=== PATIENT | female | born 1965 | race Caucasian/White ===

== ENCOUNTER 2016-10-04 05:35 | Emergency (ER) | payer OTHER, BC ==
[~2016-10-04] VITALS: Ht 172.7 cm; Wt 97.5 kg
[~2016-10-04 05:35] MED LIST: ALDACTONE25 MG; BSP10T PO; BSP5T PO; CLCX100C; CYCL5TAB11 PO; CYMBALTA; DULO60CA6 PO; ESCT10T; FENO145T2; HYDR1TAB86 PO; MULT-608; OMEP10CA2 PO; OMG1KC; ONDAN4ODT PO; POTASSIUM; PRAV40TA; PRV20T; RABE20TA; SIMVASTIN; SRTR100T PO; TRAZ150T42 PO; VIT1CAPS9; ZINC15TA2
--- OUTSIDE RECORDS SUMMARY | 2016-10-04 05:42 | XMS REPORT ---
Author Author HERIBERTO TAVERAS [facility] eClinicalWorks Address Unknown Phone Unavailable Care Team Providers Care Prospect Manager Name Role Phone HERIBERTO TAVERAS CP Unavailable Allergies, Adverse Reactions, Alerts Substance Reaction Event Type Prozac anxiety Drug Allergy Crestor leg cramps Drug Allergy Chantix red tongue Drug Allergy Problems Problem Type Condition Code Onset Dates Condition Status Assessment Urinary tract infection N39.0 Active Assessment Urgency of urination R39.15 Active Problem Irritable bowel syndrome 564.1 Active Problem Other and unspecified bipolar disorders 296.89 Active Problem Other screening mammogram V76.12 Active Problem Unspecified viral infection, in conditions classified elsewhere and of unspecified site 079.99 Active Problem Migraine with aura, without mention of intractable migraine without mention of status migrainosus 346.00 Active Problem Rheumatic fever without mention of heart involvement 390 Active Problem Acute bronchitis 466.0 Active Problem Muscle weakness (generalized) 728.87 Active Problem Anxiety disorder, unspecified F41.9 Active Problem Abdominal pain, unspecified site 789.00 Active Problem Major depressive disorder, recurrent episode, severe, without mention of psychotic behavior 296.33 Active Problem Encounter for long-term (current) use of other medications V58.69 Active Problem Major depressive disorder, recurrent episode F33.9 Active Problem Screening for malignant neoplasm of the cervix V76.2 Active Problem Acute cystitis 595.0 Active Problem Urinary frequency 788.41 Active Problem Acute upper respiratory infections of unspecified site 465.9 Active Problem Nondependent tobacco use disorder 305.1 Active Problem Restless legs syndrome [RLS] 333.94 Active Problem Generalized anxiety disorder 300.02 Active Problem Spasm of muscle 728.85 Active Problem Other malaise and fatigue 780.79 Active Problem Post-traumatic headache, unspecified 339.20 Active Problem Attention deficit disorder of childhood without mention of hyperactivity 314.00 Active Problem Cramp of limb 729.82 Active Problem Loss of weight 783.21 Active Medications Medication Code System Code Instructions Start Date End Date Status Dosage BusPIRone HCl [facility] [address]-72 15 MG Orally Twice a day 1 tablet Lyrica [facility] [address]-44 75 MG Orally 1 tab in the AM and 2 tabs at bedtime 1 capsule Zolpidem Tartrate [facility] [address]-32 5 MG TAKE ONE TABLET BY MOUTH AT BEDTIME Multivitamin [facility] [address] Orally Once a day 1 tablet Cymbalta [facility] [address]-11 30 MG Orally Once a day January 20, 2015 3capsule Cipro [facility] [address]-00 500 MG Orally Twice a day Jun 12, 2015 Jun 22, 2015 1 tablet Procedures Procedure Coding System Code Date URINE CULTURE/COLONY COUNT CPT-4 07621 Jun 12, 2015 Office Visit, Est Pt., Level 3 CPT-4 28815 Jun 12, 2015 URINALYSIS, AUTO, W/O SCOPE CPT-4 07173 Jun 12, 2015 Vital Signs Date/Time: Jun 12, 2015 Temperature 98.3 F Weight 204 lbs Height 71 in BMI 28.45 Index Blood Pressure Diastolic 80 mmHg Blood Pressure Systolic 128 mmHg Cardiac Monitoring Heart Rate 70 bpm Results Name Result Date Reference Range Unit Abnormality Flag UA LONG DIP (IN HOUSE) CULTURE, URINE Summary Purpose eClinicalWorks Submission
[2016-10-04] MEDS ORDERED: SIMV20TA3 PO (05:49)
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
[2016-10-04] MEDS ORDERED: KETOROLAC 30 MG/ML VIAL IVP STA (07:36)
[2016-10-04] MEDS ORDERED: CYCL10TA9 PO (07:41)
[2016-10-04] MEDS ORDERED: IBUP-1780 PO (07:41)
[2016-10-04 08:10] VITALS: BP 138/65
== END 2016-10-04 08:10 | disposition home or self-care (01) ==
LOC: EDUNIT# 05:35 → ER 05:37
DX: S16.1XXA Strain of muscle, fascia and tendon at neck level, initial encounter (principal); S40.011A Contusion of right shoulder, initial encounter; S86.911A Strain of unspecified muscle(s) and tendon(s) at lower leg level, right leg, initial encounter; M47.812 Spondylosis without myelopathy or radiculopathy, cervical region; E04.1 Nontoxic single thyroid nodule; F17.210 Nicotine dependence, cigarettes, uncomplicated; V43.52XA Car driver injured in collision with other type car in traffic accident, initial encounter; Y92.410 Unspecified street and highway as the place of occurrence of the external cause; Y99.8 Other external cause status
CPT/HCPCS: 70450; 71010; 72125; 72128; 72131; 72170; 73000; 73590; 96374; 99283

== ENCOUNTER → 2016-11-08 | Outpatient (CLI) | payer BC ==
[~2016-11-08] VITALS: Ht 180.3 cm; Wt 98.9 kg
[~2016-11-08] MED LIST changes: +CYCL10TA9 PO; +IBUP-1780 PO; +REGADENOSON 0.4 MG/5 ML SYR (LEXISCAN) IV ONE; +SIMV20TA3 PO
[2016-11-08] MEDS: CATHETER FLUSH 10 ML SYR IV PRN ×2 (11:27→13:09)
[2016-11-08 13:07] VITALS: BP 115/64
--- NOTE | 2016-11-10 08:54 | ECHOCARDIOGRAPHY REPORT ---
PROCEDURE PHYSICIAN: ANAND ENG DATE OF PROCEDURE: 11/08/2016 TWO DIMENSIONAL ECHOCARDIOGRAM REPORT PRIMARY PHYSICIAN: Dr. Murray OTHER PHYSICIAN: REFERRING PHYSICIAN: ORDERING PHYSICIAN: Dr. Eng INDICATION FOR THE PROCEDURE: 1. Chest discomfort. 2. Abnormal electrocardiogram. MEASUREMENTS DERIVED VALUES LV DIAMETER (LAX) NORMALS NORMALS Diastolic 5.1 (3.6-5.2) Eject. Fract. (60%+/-6%) Systolic (2.3-3.9) Diastolic Vol. % Shortening (0.22-0.42) Systolic Vol. Aortic Root 3.3 IVS THICKNESS Diastolic 1.1 (0.6-1.1) LVPW THICKNESS Diastolic 1 (0.6-1.1) LA DIAMETER Systolic 3.8 (2.1-3.7) DESCRIPTION: Two-dimensional echocardiography shows normal global left ventricular systolic function with normal regional wall motion. Left ventricular ejection fraction is approximately 60 to 65%. Aortic, mitral and tricuspid valve leaflets show good leaflet excursion. There is no significant pericardial effusion. Aortic valve appears to be trileaflet. Doppler imaging shows mild to moderate aortic regurgitation. There is trivial to mild mitral and tricuspid regurgitation. There is no evidence of any significant intracardiac shunt. Inferior vena cava is mildly dilated but does exhibit inspiratory collapse. CONCLUSIONS: 1. Normal global left ventricular systolic function with an ejection fraction of 60 to 65%. 2. Mild to moderate aortic regurgitation. 3. Trivial to mild mitral and tricuspid regurgitation. 4. No evidence of any significant valvular stenosis. 5. Pulmonary artery systolic pressure could not be reliably estimated on this study. Job ID: [id number] Dictated Date: 11/09/2016 17:30:38 Event Specialist Food Demonstrator Date: 11/10/2016 08:45:47 / [place]
--- NOTE | 2016-11-10 11:05 | STRESS TEST ---
PROCEDURE PHYSICIAN: ANAND ENG RESTING AND POST REGADENOSON TECHNETIUM 99M TETROFOSMIN SPECT CT IMAGING DATE OF PROCEDURE: 11/08/2016 ORDERING PHYSICIAN: Dr. Eng PRIMARY PHYSICIAN: Dr. Murray CLINICAL DIAGNOSIS: Chest discomfort, abnormal electrocardiogram. Baseline images were carried out after injection of 10.43 mCi technetium 99m tetrofosmin this was followed by 0.4 mg of regadenoson and 30.6 mCi technetium 99m tetrofosmin for stress imaging. The electrocardiogram showed sinus rhythm with incomplete right bundle branch block. The electrocardiogram did not change significantly with the regadenoson infusion. The patient tolerated the procedure well. Review of images rest and following stress, does not indicate any distinct perfusion defects consistent with significant myocardial ischemia or infarction. Gated images show normal global left ventricular systolic function with normal regional wall motion. Left ventricular ejection fraction is calculated to be 67%. Left end-diastolic volume is 91 mL. TID is absent (1.04) CONCLUSIONS: 1. No evidence of significant myocardial ischemia or infarction on this study. 2. Normal regional wall motion. 3. Normal global left ventricular systolic function with a calculated ejection fraction of 67%. Job ID: [id number] Dictated Date: 11/10/2016 09:24:20 Director Of It Operations Date: 11/10/2016 11:01:27 / nica
== END ==
LOC: CARD 11:01
PROVIDERS: ATTEND Internal Medicine Cardiovascular Disease
DX: E78.4 Other hyperlipidemia (principal); Z72.0 Tobacco use; R94.31 Abnormal electrocardiogram [ECG] [EKG]; R07.89 Other chest pain
CPT/HCPCS: 78452; 93017; 93306